=== PATIENT | female | born 1955 | race Caucasian/White ===

== ENCOUNTER 2021-08-17 10:55 | Emergency (ER) | payer MEDICARE ==
[2021-08-17 11:01] VITALS: BP 162/65; PULSE 63
== END 2021-08-17 12:19 | disposition home or self-care (01) ==
LOC: JP.ED 10:55
DX: S80.01XA Contusion of right knee, initial encounter (principal); E78.00 Pure hypercholesterolemia, unspecified; I10 Essential (primary) hypertension; K21.9 Gastro-esophageal reflux disease without esophagitis; E11.9 Type 2 diabetes mellitus without complications; M19.90 Unspecified osteoarthritis, unspecified site; E66.9 Obesity, unspecified; Z68.31 Body mass index [BMI] 31.0-31.9, adult; Z88.1 Allergy status to other antibiotic agents; Z88.8 Allergy status to other drugs, medicaments and biological substances; Z91.048 Other nonmedicinal substance allergy status; Z88.2 Allergy status to sulfonamides; Z79.82 Long term (current) use of aspirin; W18.30XA Fall on same level, unspecified, initial encounter
CPT/HCPCS: 73562-26-RT; 73562-RT; 99284

== ENCOUNTER 2022-08-05 06:33 | Day surgery (SDC) | payer MEDICARE ==
[2022-08-05] MEDS ORDERED: Midazolam 1 MG/ML 2 ML SDV ONE (07:18)
[2022-08-05] MEDS ORDERED: fentaNYL 50 MCG/ML SDV ONE (07:18)
[2022-08-05] MEDS ORDERED: Propofol 200 MG/20 ML SDV ONE ×2 (07:18→08:38)
[2022-08-05] MEDS ORDERED: Lactated Ringers 1,000 ML IV SCH (08:30)
[2022-08-05 09:33] VITALS: BP 124/76; PULSE 73
== END 2022-08-05 09:50 | disposition home or self-care (01) ==
LOC: JP.SDS 06:33
PROVIDERS: ATTEND Student in an Organized Health Care Education/Training Program
DX: Z12.11 Encounter for screening for malignant neoplasm of colon (principal); K63.5 Polyp of colon; K57.30 Diverticulosis of large intestine without perforation or abscess without bleeding; I10 Essential (primary) hypertension; K21.9 Gastro-esophageal reflux disease without esophagitis; E11.9 Type 2 diabetes mellitus without complications; Z79.899 Other long term (current) drug therapy; Z88.2 Allergy status to sulfonamides; Z88.8 Allergy status to other drugs, medicaments and biological substances; Z88.1 Allergy status to other antibiotic agents; Z86.010 Personal history of colon polyps
CPT/HCPCS: 45380; 88305; J2250; J2704; J3010; J7120